=== PATIENT | male | born 1980 | race Caucasian/White ===

== ENCOUNTER 2016-03-27 21:33 | Emergency (ER) | payer OTHER ==
[2016-03-27 21:50] VITALS: BP 148/84; PULSE 73; RESP 18; TEMP 97.7; O2SAT 99
[2016-03-27] MEDS ORDERED: CLINDAMYCIN 600 MG/DEXTROSE 50 ML IV ONE (22:15)
[2016-03-27 22:33] LABS: % IMMATURE GRANULYOCYTES 0.2 % (0.0-1.1); ABSOLUTE IMMATURE GRANULOCYTES 0.03 10^3/uL (0.00-0.10); ADD DIFF? NO; ADD MORPH? NO; ADD SCAN? NO; ATYPICAL LYMPHOCYTE FLAG 0 (0-99); FRAGMENT RBC FLAG 0 (0-99); HEMATOCRIT 42.8 % (40.0-51.0); LEFT SHIFT FLG 0 (0-99); LIPEMIA HEMOLYSIS FLAG 90 (0-99); MEAN CELL HEMOGLOBIN 29.5 pg (27.9-34.1); MEAN CELL VOLUME 84.3 fL (81.5-99.8); MEAN PLATELET VOLUME 9.1 fL (8.7-11.7); PLATELET CLUMPS FLAG 0 (0-99); PLATELET COUNT 298 10^3/uL (150-400); RED BLOOD CELL COUNT 5.08 10^6/uL (4.40-6.38); RED CELL DISTRIBUTION WIDTH 12.4 % (11.5-15.2)
[2016-03-27 22:47] LABS: ANION GAP 14 mEq/L (8-16); CALCIUM 9.5 mg/dL (8.5-10.4); CARBON DIOXIDE 26 mEq/l (22-31); CHLORIDE 101 mEq/L (97-110); CREATININE 0.9 mg/dL (0.7-1.3); GLOMERULAR FILTRATION RATE > 60; GLUCOSE 135 mg/dL (70-100); POTASSIUM 3.7 mEq/L (3.5-5.2); SODIUM 141 mEq/L (134-144)
[2016-03-27 22:58] LABS: SEDIMENTATION RATE 5 MM/HR (0-15)
--- NOTE | 2016-03-27 23:01 | UCPHY ---
H & P Time Seen by Provider: 03/27/16 22:13 Patient Type: Established HPI/ROS: 35-year-old male presents complaining of redness and swelling just below his right knee approximately 1 day duration. He states he had a pimple there which he popped and then shortly thereafter had increased redness and swelling. He denies fevers or chills He is able walk is full range of motion of his knee Review of systems General no fever no chills no weakness HEENT no eye pain no eye discharge. No eye redness, no sore throat Respiratory no cough, no shortness of breath Cardiac no chest pain, no peripheral edema GI no abdominal pain, no diarrhea, no constipation, no nausea, no vomiting no flank pain, no hematuria, no dysuria Musculoskeletal no myalgias, no joint pain Heme no easy bruising, no easy bleeding Endo no polyuria, no polydipsia Skin positive rashes, no pruritus Neuro no syncope, no dizziness, no headaches Psych is no suicidal ideation, no homicidal ideation Past Medical/Surgical History: Hyperlipidemia Hypothyroidism Smoking Status: Never smoked Physical Exam: 35-year-old male alert and oriented no acute distress nontoxic appearance afebrile Alert and oriented in no acute distress nontoxic appearance, afebrile Atraumatic normocephalic Neck no JVD Lungs clear to auscultation, no respiratory distress Heart regular rate and rhythm Extremities no cyanosis clubbing edema Right knee-full range of motion, no laxity no swelling no effusion Just be low the patellar tendon on the anterior duran there is a 1 x 2 cm erythematous indurated area, tender to palpation Non fluctuant Constitutional: Initial Vital Signs Temperature (C) 36.5 C 03/27/16 21:47 Heart Rate 73 03/27/16 21:47 Respiratory Rate 18 03/27/16 21:47 Blood Pressure 148/84 H 03/27/16 21:47 O2 Sat (%) 99 03/27/16 21:47 O2 Delivery Mode Room Air Allergies/Adverse Reactions: No Known Allergies Allergy (Unverified 03/27/16 21:46) Home Medications: Medication Instructions Recorded Clindamycin HCl [Clindamycin] 300 mg PO TID #30 cap 03/27/16 Levothyroxine [Synthroid 88 mcg 03/27/16 (*)] SIMVASTATIN 03/27/16 Medical Decision Making Procedures: Procedure Needle aspiration Area on right anterior duran just below the patellar tendon cleansed, anesthetized with 1% lidocaine without epi 18 gauge needle used to aspirate area, small amount of blood return, no obvious pus Impression No significant abscess or boil formation at this time Likely cellulitis ED Course/Re-evaluation: Patient seen and evaluated for redness and swelling right lower leg, that began after popping a pimple Impression Local cellulitis, may be a very early boil/abscess Needle aspiration with culture sent, no obvious pus collection Patient given IV clindamycin 1st dose Patient discharged home on clindamycin Advised to return if worsening - Data Points Laboratory Results: Laboratory Results 03/27/16 22:30 03/27/16 22:30 03/27/16 22:30 WBC 12.31 H 10^3/uL (3.80-9.50) RBC 5.08 10^6/uL (4.40-6.38) Hgb 15.0 g/dL (13.7-17.5) Hct 42.8 % (40.0-51.0) MCV 84.3 fL (81.5-99.8) MCH 29.5 pg (27.9-34.1) MCHC 35.0 g/dL (32.4-36.7) RDW 12.4 % (11.5-15.2) Plt Count 298 10^3/uL (150-400) MPV 9.1 fL (8.7-11.7) Neut % (Auto) 71.1 % (39.3-74.2) Lymph % (Auto) 19.2 % (15.0-45.0) [place] % (Auto) 7.1 % (4.5-13.0) Eos % (Auto) 2.1 % (0.6-7.6) Baso % (Auto) 0.3 % (0.3-1.7) Nucleat RBC Rel Count 0.0 % (0.0-0.2) Absolute Neuts (auto) 8.75 H 10^3/uL (1.70-6.50) Absolute Lymphs (auto) 2.36 10^3/uL (1.00-3.00) Absolute Monos (auto) 0.87 H 10^3/uL (0.30-0.80) Absolute Eos (auto) 0.26 10^3/uL (0.03-0.40) Absolute Basos (auto) 0.04 10^3/uL (0.02-0.10) Absolute Nucleated RBC 0.00 10^3/uL (0-0.01) Immature Gran % 0.2 % (0.0-1.1) Immature Gran # 0.03 10^3/uL (0.00-0.10) ESR 5 MM/HR (0-15) Sodium 141 mEq/L (134-144) Potassium 3.7 mEq/L (3.5-5.2) Chloride 101 mEq/L (97-110) Carbon Dioxide 26 mEq/l (22-31) Anion Gap 14 mEq/L (8-16) BUN 21 mg/dL (7-23) Creatinine 0.9 mg/dL (0.7-1.3) Estimated GFR > 60 Glucose 135 H mg/dL (70-100) Calcium 9.5 mg/dL (8.5-10.4) Medications Given: Discontinued Medications Clindamycin Phosphate/Dextrose (Cleocin 600 Mg (Premix)) 50 mls @ 100 mls/hr IV EDNOW ONE PRN Reason: Protocol Stop: 03/27/16 22:44 Last Admin: 03/27/16 22:25 Dose: 50 mls Departure - Departure Disposition: Home, Routine, Self-Care Clinical Impression: Cellulitis of lower leg Condition: Good Instructions: Cellulitis (ED) Referrals: ADALID ANDERSON [Primary Care Provider] - As per Instructions Prescriptions: Clindamycin HCl [Clindamycin] 300 mg PO TID #30 cap - PQRS PQRS Measurement: na
== END 2016-03-27 23:13 | disposition home or self-care (01) ==
LOC: CED 21:33
PROC: 0Y9F3ZZ Drainage of Right Knee Region, Percutaneous Approach (ICD-10-PCS; principal; 2016-03-27)
DX: L03.115 Cellulitis of right lower limb (principal); E78.5 Hyperlipidemia, unspecified; E03.9 Hypothyroidism, unspecified
CPT/HCPCS: 20610-PO; 73564-PO; 80048-PO; 85025-PO; 85652-PO; 99214-PO